=== PATIENT | male | born 1980 | race Caucasian/White ===

== ENCOUNTER 2020-03-15 01:15 | Emergency (ER) | payer OTHER ==
[~2020-03-15] VITALS: Ht 172.7 cm; Wt 81.7 kg
== END 2020-03-15 03:55 | disposition home or self-care (01) ==
LOC: ED 01:15
DX: N20.2 Calculus of kidney with calculus of ureter (principal); Z87.442 Personal history of urinary calculi; F17.200 Nicotine dependence, unspecified, uncomplicated
CPT/HCPCS: 74176; 80053; 81001; 85025; 96361; 96374; 96375; 96376; 99284-25; J1170; J1885; J2405; J7030

== ENCOUNTER 2020-03-15 16:32 | Emergency (ER) | payer OTHER ==
[~2020-03-15] VITALS: Ht 172.7 cm; Wt 81.7 kg
--- OUTSIDE RECORDS SUMMARY | 2020-03-15 16:34 | XMS ---
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 Roney has no Care Guidelines for this patient. [facility] V[facility] (12 MO.) [facility] NOTE: Visits indicate total known visits. ED/C VISIT TRACKING (12 MO.) 03/15/2020 16:32 [facility] [place] TYPE: Emergency COMPLAINT: - FLANK PAIN 03/15/2020 01:16 [facility] [place] TYPE: Emergency COMPLAINT: - FLANK PAIN/URINE PROBLEM INPATIENT VISIT TRACKING (12 MO.) No inpatient visits to display in this time frame [id number]
== END 2020-03-15 19:02 | disposition home or self-care (01) ==
LOC: ED 16:32
DX: N32.0 Bladder-neck obstruction (principal); R31.0 Gross hematuria; F17.200 Nicotine dependence, unspecified, uncomplicated
CPT/HCPCS: 51702; 51798; 99283-25

== ENCOUNTER 2020-03-19 05:40 | Day surgery (SDC) | payer OTHER ==
[~2020-03-19] VITALS: Ht 172.7 cm; Wt 81.8 kg
[~2020-03-19 05:40] MED LIST: ACETAMINOPHEN-1 EACH PO; ALLEGRA ALLERG180 MG PO; PERCOCET 5-3251 EACH PO; PRILOSEC OTC20 MG PO
--- NOTE | 2020-03-19 08:34 | NUR ---
03/19/20 0834 Trace Bedolla A REPORT RECIEVED. PT REMAINS UNRESPONSIVE TO TAP AND VOICE
--- NOTE | 2020-03-19 09:50 | NUR ---
PATIENT BACK FROM RECOVERY, BEDSIDE REPORT FELIPE PATEL. VOIDING TRIAL STARTED. MEDICATED FOR PAIN. PATIENT AWAKE AAOX3, MOTHER AT BEDSIDE. CALL LIGHT WITHIN RANGE.
--- NOTE | 2020-03-19 11:25 | NUR ---
PATIENT STOOD AT BEDSIDE AND VOIDED 450 ML OF BLOODY TINGED URINE. PAIN IMPROVED 2/10 ON PAIN SCALE. PVR <40 ML OF URINE. PATIENT AMBULATING WELL. SIPPING FLUIDS AND EATING CRACKERS NO NAUSEA. PATIENT DRESSED SELF, DRAINAGE FROM URETHRA APPEARS TO HAVE STOPPED. PROVIDED DISCHARGE INSTRUCTION TO PATIENT AND MOTHER. PROVIDED WHEELCHAIR RIDE TO FRONT.
--- NOTE | 2020-03-20 15:44 | OR ---
[facility] [address] [place], [place] [address] Signed DATE OF OPERATION: 03/19/2020 SURGEON: Clifford Herrera MD PREOPERATIVE DIAGNOSES: 1. Recent history of left-sided flank pain with associated gross hematuria. 2. Urinary retention, secondary to large blood clot within bladder. POSTOPERATIVE DIAGNOSES: 1. Recent history of left-sided flank pain with associated gross hematuria. 2. Urinary retention, secondary to large blood clot within bladder. 3. Negative cystoscopy and bilateral retrograde pyelogram, status post spontaneous passage of large well organized blood clot within bladder. NAME OF THE PROCEDURES: 1. Diagnostic cystoscopy with bilateral retrograde pyelograms. 2. Cauterization of bullous edema associated with indwelling Holm catheter, anterior bladder wall. 3. Placement of a 20-Icelandic 2-way Holm catheter, connected to gravity drainage. ANESTHESIA: General. ESTIMATED BLOOD LOSS: Minimal. COMPLICATIONS: None. SPECIMENS: None. DRAINS: A 20-Icelandic 2-way Holm catheter, connected to gravity. INDICATIONS FOR PROCEDURE: Mr. Hays is a very pleasant healthy 39-year-old male, who recently presented to the emergency department with complaints of left-sided flank pain and gross hematuria. Soon thereafter, he experienced urinary retention, secondary to a blood clot present in his bladder. A 24-Icelandic 3-way Holm catheter was inserted into his bladder and his bladder Electronically Signed By: CLIFFORD HERRERA MD 03/20/20 1544 PATIENT NAME: HARDY HAYS OPERATIVE REPORT DATE OF : 82 REPORT #: [id number] PHYSICIAN: CLIFFORD HERRERA MD PCP: NO PRIMARY CARE PHYSICIAN REPORT IS CONFIDENTIAL AND NOT TO BE RELEASED WITHOUT AUTHORIZATION [facility] [address] [place], [place] [address] Signed was irrigated thoroughly. He was sent home and saw me a couple of days later in clinic. He underwent diagnostic cystoscopy at that time, which revealed a very large well organized blood clot within the patient's bladder. I was unable to achieve adequate visualization of the portion of the bladder that was under the clot, so he has been scheduled to undergo cystoscopy with blood clot evacuation, possible TURBT today. Of note, the patient also underwent a contrasted CT scan, which did reveal perinephric stranding of the left kidney along with dilation of the left collecting system. There was no obvious stone present on the left side. There was a small upper pole stone noted in the right kidney. The patient presents today to undergo the aforementioned procedure. OPERATIVE FINDINGS: 1. On cystoscopy, I see no evidence of the previously visualized well organized blood clot present within the bladder. There are some small fragments of blood clot present that are easily irrigated out of the bladder. I do not see any evidence of any masses or lesions that would be consistent with being the source of the previous blood clot. I do, however, note some bullous edema present on the anterior bladder wall, likely secondary to Holm catheter trauma from his indwelling 24-Icelandic 3-way Holm catheter. 2. Bilateral retrograde pyelograms were performed, which revealed no evidence of any filling defects or other abnormalities within either ureter. The bilateral renal pelvises also appear to be within normal limits with no obvious evidence of dilation or filling defects. 3. I used a bipolar button to gently cauterize the bullous edema present on the anterior bladder wall. This was performed without incident. Of note, the bilateral ureteral orifices are in their normal anatomic location and effluxing clear urine. DESCRIPTION OF PROCEDURE: After informed consent was obtained, the patient was taken back to the operating room. [facility] to the operating room table, where general anesthesia was induced. His Holm catheter was then removed and his genitalia were prepped and draped in a standard sterile fashion. The patient's urethra was dilated from 16-Icelandic to 30-Icelandic without difficulty. I then inserted a 26-Icelandic sheath using a visual obturator into the patient's bladder. Prior to this, diagnostic cystoscopy was performed using a 30-degree lens on a 22.5-Icelandic sheath. Please see above findings. Once the 26-Icelandic sheath was then placed, I inserted a resectoscope into the patient's bladder. Please see above findings. I again did not see any evidence of the previous well organized blood clot noted on recent cystoscopy. I did, however, use a bipolar button to gently cauterize the dome of the bladder where a good deal of bullous edema was present. Please see above findings. This bullous edema does not seem suspicious anyway and appears to be directly related to his 2 traumas from his indwelling Holm catheter. Once the dome of the bladder was gently cauterized, I removed the resectoscope. The patient's bladder was then irrigated with a Renaldo syringe and a few Electronically Signed By: CLIFFORD HERRERA MD 03/20/20 1544 PATIENT NAME: HARDY HAYS OPERATIVE REPORT DATE OF : 82 REPORT #: [id number] PHYSICIAN: CLIFFORD HERRERA MD PCP: NO PRIMARY CARE PHYSICIAN REPORT IS CONFIDENTIAL AND NOT TO BE RELEASED WITHOUT AUTHORIZATION [place] [address] Signed small blood clots were irrigated from the patient's bladder. I removed the resectoscope and reinserted a cystoscope via a 22.5-Icelandic sheath. I then performed bilateral retrograde pyelograms using a cone-tipped catheter. Please see above findings. The patient's bladder was then drained and the cystoscope was removed. I then inserted a 20-Icelandic 2-way Holm catheter into the patient's bladder and connected the catheter to gravity drainage. The procedure was then terminated. The patient tolerated the procedure well without any complication. He will now be transferred to the postanesthesia care unit in stable condition. DISPOSITION: I discussed the details of today's procedure with the patient's mother and answered all of her questions. I informed her that there does not appear to be any overt abnormality noted in the patient's kidneys or ureters or bladder. I suspect that he passed a stone from the left kidney, which produced a significant amount of left ureteral bleeding, which drained into the bladder and produced a blood clot. This resulted in clot retention, requiring placement of an indwelling catheter. I reassured her that there were no abnormalities at this time and no direct followup was required. The patient will be sent home with Percocet 5/325, dispense #5 p.r.n. pain. He will also be given Cipro 500 mg p.o. b.i.d. for the next 7 days. He does have to take the antibiotics for the next few days. The patient's Holm catheter will be removed prior to his discharge today and he must void prior to discharge. This was explained to his mother today. The patient will be scheduled to return to clinic in around 4 months for a routine postoperative evaluation. Clifford Herrera MD AR/MODL /[id number] Copies: ~ Electronically Signed By: CLIFFORD HERRERA MD 03/20/20 1544 PATIENT NAME: HARDY HAYS OPERATIVE REPORT DATE OF : 82 REPORT #: [id number] PHYSICIAN: CLIFFORD HERRERA MD PCP: NO PRIMARY CARE PHYSICIAN REPORT IS CONFIDENTIAL AND NOT TO BE RELEASED WITHOUT AUTHORIZATION
== END 2020-03-19 10:40 | disposition home or self-care (01) ==
LOC: DS 05:40
PROVIDERS: ATTEND Urology
PROC: BT14ZZZ Fluoroscopy of Kidneys, Ureters and Bladder (ICD-10-PCS; principal; 2020-03-19 06:45)
DX: N32.89 Other specified disorders of bladder (principal); R31.0 Gross hematuria; R33.9 Retention of urine, unspecified; Z79.899 Other long term (current) drug therapy; F17.210 Nicotine dependence, cigarettes, uncomplicated
CPT/HCPCS: 74420; J0690; J1100; J1885; J2001; J2250; J2405; J2704; J3010; J7121; Q9967

== ENCOUNTER 2024-12-20 21:42 | Emergency (ER) | payer OTHER ==
[~2024-12-20] VITALS: Ht 172.7 cm; Wt 87.1 kg
--- OUTSIDE RECORDS SUMMARY | 2024-12-20 21:45 | XMS ---
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 Roney has no Care Guidelines for this patient. [place] VISIT COUNT (12 MO.) 1 [facility] TOTAL 1 NOTE: Visits indicate total known visits. ED/UCC VISIT TRACKING (12 MO.) 12/20/2024 21:43 [facility] [place] TYPE: Emergency COMPLAINT: - URINARY PROBLEMS INPATIENT VISIT TRACKING (12 MO.) No inpatient visits to display in this time frame [id number]
[2024-12-20] MEDS ORDERED: MORPHINE SULFATE 4 MG/ML VIAL IV ONE (22:00)
[2024-12-20] MEDS ORDERED: SODIUM CHLORIDE 0.9% 1,000 ML IV ONE (22:00)
[2024-12-20 22:24] LABS: BLOOD/HGB, URINE LARGE (Negative); KETONE, URINE NEGATIVE (Negative); LEUK ESTERASE, URINE NEGATIVE (negative); NITRITE, URINE NEGATIVE (negative)
[2024-12-20 22:24] LABS: BASOPHILS 0.5 % (0.2-1.2); EOSINOPHILS 2.1 % (0.8-7.0); LYMPHOCYTES 13.0 % (21.8-53.1); MCH 29.8 PG (25.7-32.2); MCHC 34.2 g/dL (32.3-36.5); MCV 86.9 fL (79.0-92.2); MONOCYTES 9.9 % (5.3-12.2); NEUTROPHILS 74.0 % (34.0-67.9); RBC 5.44 M/uL (4.63-6.08)
[2024-12-20 22:33] LABS: BACTERIA, URINE 1+ /hpf (negative); CASTS, URINE NONE SEEN \\lpf; CRYSTALS, URINE NONE SEEN (0-1+); EPITHELIAL CELLS, URINE SQUAMOUS 1+ /lpf (0-1+); REFLEX CULTURE, URINE No (No)
[2024-12-20 22:40] LABS: ALT (SGPT) 37.0 U/L (14-59); AST (SGOT) 22.0 U/L (15-37); GLOMERULAR FILTRATION RATE,EST 57.0 mL/min (>60); PROTEIN, TOTAL 7.9 g/dL (6.4-8.2); UREA NITROGEN 23.0 mg/dL (7-18)
[2024-12-20] MEDS ORDERED: ONDANSETRON ODT8 MG PO (23:37)
[2024-12-20] MEDS ORDERED: HYDROCODON-ACE1 EA10 PO (23:37)
[2024-12-20] MEDS ORDERED: CIPRO500 MG PO (23:37)
[2024-12-20] MEDS ORDERED: FLOMAX0.4 MG PO (23:37)
[2024-12-20 23:54] VITALS: BP 144/86
== END 2024-12-20 23:57 | disposition home or self-care (01) ==
LOC: ED 21:42
PROVIDERS: Family Medicine
DX: N13.2 Hydronephrosis with renal and ureteral calculous obstruction (principal); K76.0 Fatty (change of) liver, not elsewhere classified; Z87.442 Personal history of urinary calculi; F17.200 Nicotine dependence, unspecified, uncomplicated; Z79.899 Other long term (current) drug therapy
CPT/HCPCS: 36415; 74176; 80053; 81001; 83690; 85025; 96374; 96375; 99284-25; J2270; J2405; J7030

== ENCOUNTER 2025-02-16 14:08 | Emergency (ER) | payer OTHER ==
[~2025-02-16] VITALS: Ht 172.7 cm; Wt 83.6 kg
[~2025-02-16 14:08] MED LIST changes: +CIPRO500 MG PO; +FLOMAX0.4 MG PO; +HYDROCODON-ACE1 EA10 PO; +ONDANSETRON ODT8 MG PO
--- OUTSIDE RECORDS SUMMARY | 2025-02-16 14:15 | XMS ---
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 Roney has no Care Guidelines for this patient. [place] VISIT COUNT (12 MO.) 2 [facility] TOTAL 2 NOTE: Visits indicate total known visits. ED/C VISIT TRACKING (12 MO.) 02/16/2025 14:09 [facility] [place] TYPE: Emergency COMPLAINT: - FLANK PAIN 12/20/2024 21:[address] [facility] [place] TYPE: Emergency COMPLAINT: - URINARY PROBLEMS DIAGNOSES: - Fatty (change of) liver, not elsewhere classified - Hydronephrosis with renal and ureteral calculous obstruction - Nicotine dependence, unspecified, uncomplicated - Other care home (current) drug therapy - Personal history of urinary calculi - Unspecified abdominal pain INPATIENT VISIT TRACKING (12 MO.) No inpatient visits to display in this time frame [id number]
[2025-02-16 14:41] LABS: BLOOD/HGB, URINE NEGATIVE (Negative); KETONE, URINE NEGATIVE (Negative); LEUK ESTERASE, URINE NEGATIVE (negative); NITRITE, URINE POSITIVE (negative)
[2025-02-16] MEDS ORDERED: KETOROLAC TROMETHAMINE 15 MG/ML VIAL IV ONE (14:45)
[2025-02-16 14:49] LABS: BASOPHILS 1.1 % (0.2-1.2); EOSINOPHILS 3.9 % (0.8-7.0); LYMPHOCYTES 27.3 % (21.8-53.1); MCH 29.2 PG (25.7-32.2); MCHC 32.9 g/dL (32.3-36.5); MCV 88.8 fL (79.0-92.2); MONOCYTES 13.9 % (5.3-12.2); NEUTROPHILS 53.3 % (34.0-67.9); RBC 5.17 M/uL (4.63-6.08)
[2025-02-16 14:52] LABS: EPITHELIAL CELLS, URINE SQUAMOUS 1+ /lpf (0-1+)
[2025-02-16 14:53] LABS: BACTERIA, URINE NONE SEEN /hpf (negative); CASTS, URINE NONE SEEN \\lpf; CRYSTALS, URINE NONE SEEN (0-1+); REFLEX CULTURE, URINE No (No)
[2025-02-16 15:08] LABS: ALT (SGPT) 35.0 U/L (14-59); AST (SGOT) 21.0 U/L (15-37); GLOMERULAR FILTRATION RATE,EST 75.0 mL/min (>60); PROTEIN, TOTAL 7.4 g/dL (6.4-8.2); UREA NITROGEN 16.0 mg/dL (7-18)
[2025-02-16] MEDS ORDERED: HYDROCODON-ACE1 EA11 PO (18:06)
[2025-02-16] MEDS ORDERED: FLOMAX0.4 MG PO (18:06)
[2025-02-16] MEDS ORDERED: ONDANSETRON ODT8 MG PO (18:06)
[2025-02-16] MEDS ORDERED: TAMSULOSIN HCL 0.4 MG CAP PO ONE (18:15)
[2025-02-16 18:27] VITALS: BP 138/90
== END 2025-02-16 18:31 | disposition home or self-care (01) ==
LOC: ED 14:08
PROVIDERS: Emergency Medicine
DX: N13.2 Hydronephrosis with renal and ureteral calculous obstruction (principal); F17.200 Nicotine dependence, unspecified, uncomplicated
CPT/HCPCS: 36415; 74018; 76775; 80053; 81001; 85025; 96374; 99284-25; J1885